=== PATIENT | male | born 1935 | race Caucasian/White ===

== ENCOUNTER → 2018-09-17 09:35 | Outpatient (CLI) | payer MEDICARE, OTHER ==
[~2018-09-17 09:35] MED LIST: BAYER CHEWABLE81 MG PO; LOPRESSOR25 MG PO; METFORMIN HCL500 M1 PO; PLAVIX75 MG PO
--- NOTE | 2018-09-20 17:10 | ST ---
PATIENT:TRES MOY MEDICAL RECORD: [id number] SEX: M LOCATION:[facility] ORDER #: ADMISSION DATE: 09/17/18 AGE OF PATIENT: 83 REFERRING PHYSICIAN: INTERPRETING PHYSICIAN: RANDY NAGY MD DATE OF SERVICE: 09/17/2018 Nuclear Stress Test INDICATION: Angina, cardiomyopathy, and hypertension. The patient was exercised on standard Lexiscan protocol with 32 mCi of sestamibi injected at peak stress, 11 mCi were used previously for rest images. FINDINGS: Gated SPECT reveals a markedly depressed ejection fraction at 27% with decreased thickening and brightening throughout the inferior segments. SPECT IMAGING: Cardiolite was used as myocardial fusion agent. There is a fixed perfusion defect inferiorly compatible with previous inferior myocardial infarction; however, there is reversible changes anteriorly and apically, this includes the basal, mid apical, anterior segments as well as the apex itself. 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 Reversible changes anteriorly suggestive of multivessel coronary artery disease. We will proceed with coronary angiography as followup study. TRANSINT:[id number] Voice Confirmation ID: [id number] DOCUMENT ID: [id number] RANDY NAGY MD at 1710 CC: [id number] DICTATION DATE: 09/18/18 1159 SECURITY TRAINER: 09/19/18 0223 DEP CLI 09/17/18 [place] [id number] [place] [address]
[2018-10-02 09:03] VITALS: BMI 26.3
== END | disposition home or self-care (01) ==
LOC: D.HCCARDIO 09:30
DX: I08.8 Other rheumatic multiple valve diseases (principal)

== ENCOUNTER 2018-09-25 08:27 | Outpatient (CLI) | payer MEDICARE, OTHER ==
[~2018-09-25] VITALS: Ht 175.3 cm; Wt 84.1 kg
--- NOTE | ~2018-09-25 | HEMODYNAMI ---
PATIENT:TRES MOY MEDICAL RECORD: [id number] : 33 LOCATION:[facility] ADMISSION DATE: 09/25/18 Generatedon:09/25/201811:12 Patient name: TRES MOY Patient #: [id number] SSN: DO B: 1935 Date of study: 09/25/2018 Page: Of Hemodynamic Procedure Report Patient Data Patient Demographics Procedure consent was obtained First Name: TRES Gender: Male Last Name: FARZANEH : 1935 Middle Initial: FACUNDO Age: 83 year(s) Patient #: [id number] Race: Unknown Additional ID: [id number] Contact details [address]: [address] [place] [address] State: [place] City: [place] Zip code: [address] Past Medical History Allergies Allergen Reaction Date Comments Reported Other allergy 09/25/2018 pcn Admission Admission Data Admission Date: 09/25/2018 Admission Time: 8:27 Admit Source: Other Lab Results Lab Result Date: 09/25/2018 Lab Result Time: 8:50 Biochemistry Name Units Result Min Max BUN mg/dl 29 --(----)-* 7 18 Creatinine mg/dl 1.2 --(---*)-- 0.6 1.3 CBC Name Units Result Min Max Hematocrit % 45.3 --(-*--)-- 42 54 Hemoglobin g/dl 16 --(--*-)-- 13.5 17.5 Procedure Procedure Types Cath Procedure Diagnostic Procedure LHC LHC w/Coronaries FFR/IVUS Intra-Coronary IVUS Initial PCI Procedure Coronary Stent Coronary Stent Initial x2 Procedure Description Procedure Date Procedure Date: 09/25/2018 Procedure Start Time: 10:46 Procedure End Time: 11:11 Procedure Staff Name Function Milan Gutierrez MD Performing Physician Matthew Dumont RT Monitor Benji Saucedo RT Scrub Александр Kaur RN Nurse Sean Carreon RN Grinder Operator Procedure Data Cath Procedure Fluoroscopy Diagnostic fluoroscopy Total fluoroscopy Time: 6.3 time: 6.3 min min Diagnostic fluoroscopy Total fluoroscopy dose: 990 dose: 990 mGy mGy Contrast Material Contrast Material Type Amount (ml) Isovue 300 126 Entry Location Entry Primary Successful Side Size Upsize Upsize Entry Closure Succes sful Closure Location (Fr) 1 (Fr) 2 (Fr) Remarks Device Remarks Radial Right 6 Fr artery Short Estimated blood loss: 10 ml Diagnostic catheters Device Type Used For End Catheter Placement DIAGNOSTIC [place] 110cm 5 Procedure Fr catheter ([id number]) Procedure Medications Medication Administration Route Dosage 0.9% NaCl I.V. 100 ml/hr Oxygen etCO2 Nasal cannula 2 l/min Heparin Flush Bag added to field 2 bags (1000units/500ml NS) Lidocaine 2% added to field 20 Radial Cocktail added to field 1 syringe (Verapomil 2mg/Nitro 400mcg/Heparin 1500units) Versed I.V. 1 mg Fentanyl I.V. 50 mcg Radial Cocktail I.A. 1 syringe (Verapomil 2mg/Nitro 400mcg/Heparin 1500units) Heparin Bolus I.V. 4000 units Integrilin (Bolus I.V. 7.3 ml 2mg/ml) Integrilin (Bolus wasted 2.7 ml 2mg/ml) Hemodynamics Rest HGB: 16 (g/dl) Heart Rate: 88 (bpm) Pressure Samples Time Site Value (mmHg) Purpose Heart Use Rate(bpm) 10:47 LV 76/36,65 Snapshot 77 Snapshots Pre Cath Intra NCS Post Cath Vital Signs Time Heart Resp SPO2 etCO2 NIBP (mmHg) Rhythm Pain Sedation Rate (ipm) (%) (mmHg) Status Level (bpm) 10:22:59 82 14 94 0 148/88(117) NSR 0 (11) 10(A) , No pain 10:27:01 73 12 90 0 141/84(129) NSR 0 (11) 10(A) , No pain 10:31:09 80 12 92 36 136/88(108) NSR 0 (11) 10(A) , No pain 10:35:16 77 14 92 39.1 132/83(113) NSR 0 (11) 10(A) , No pain 10:39:22 75 15 92 37.6 131/84(101) NSR 0 (11) 10(A) , No pain 10:43:30 69 11 90 36 132/78(114) NSR 0 (11) 9(A) , No pain 10:47:44 77 11 91 34.6 101/53(79) NSR 0 (11) 9(A) , No pain 10:51:46 79 11 92 36.1 116/60(78) NSR 0 (11) 9(A) , No pain 10:55:49 75 14 93 37.6 125/73(89) NSR 0 (11) 9(A) , No pain 10:59:47 75 14 92 37.6 117/67(100) NSR 0 (11) 9(A) , No pain 11:03:51 67 16 92 32.3 119/73(97) NSR 0 (11) 10(A) , No pain 11:07:52 72 12 93 34.6 118/82(91) NSR 0 (11) 10(A) , No pain Medications Time Medication Route Dose Verified Delivered Reason Not es Effectiveness by by 10:28:19 0.9% NaCl I.V. 100 Александр Александр Per physician ml/hr Natasha Kaur RN RN 10:28:28 Oxygen etCO2 2 l/min Александр Александр for low 02 sats Nasal Lorigan Natasha cannula RN RN 10:28:39 Heparin Flush added 2 bags Александр Александр used for Bag to Natasha Kaur procedure (1000units/500ml [facility] RN RN NS) 10:28:49 Lidocaine 2% added 20ml Александр Александр for local to vial Lorigan Lorigan anesthetic RN RN 10:28:58 Radial Cocktail added 1 Александр Александр used for (Verapomil to syringe Lorigan Lorigan procedure 2mg/Nitro field RN RN 400mcg/Heparin 1500units) 10:39:30 Versed I.V. 1 mg Александр Александр for sedation Natasha Kaur RN RN 10:39:38 Fentanyl I.V. 50 mcg Александр Александр for sedation Natasha Kaur RN RN 10:46:39 Radial Cocktail I.A. 1 Александр Milan for (Verapomil syringe Natasha Gutierrez MD vasodilation 2mg/Nitro RN 400mcg/Heparin 1500units) 10:53:48 Heparin Bolus I.V. 4000 Александр Александр for units Lorigan Lorfinesse anticoagulation RN RN 10:54:58 Integrilin I.V. 7.3 ml Александр Александр for (Bolus 2mg/ml) Natasha Kaur antiplatelet RN RN therapy 10:55:10 Integrilin wasted 2.7 ml Александр Александр to sharp's (Bolus 2mg/ml) Natasha Kaur RN health commissioner Log Time Note 10:13:57 Informed consent obtained and on chart 10:14:00 Admit Source: Other 10:14:14 Diagnostic Cath status Elective 10:14:16 Sean Carreon RN sent for patient. Start room use. 10:14:31 Time tracking: Regular hours (M-F 7:00 - 5:00) 10:14:34 Plan of Care:Hemodynamics will remain stable., Cardiac rhythm will remain stable., Comfort level will be maintained., Respiratory function will remain adequate., Patient/ family verbilizes understanding of procedure., Procedure tolerated without complication., Recovers from procedure without complications.. 10:14:50 H&P Date Dictated: 09/10/2018 Within 30 days and on chart., H&P Addendum completed by physician on day of procedure. (MUST COMPLETE FOR ALL OUTPATIENTS). 10:14:57 Patient allergic to Other allergypcn 10:16:05 Lab Result : BUN 29 mg/dl 10:16:05 Lab Result : Creatinine 1.2 mg/dl 10:16:05 Lab Result : Hemoglobin 16 g/dl 10:16:05 Lab Result : Hematocrit 45.3 % 10:16:07 Lab results completed and on chart. 10:16:37 Patient received from Pre/Post Procedure Room to [facility] 2 Alert and oriented. Tansferred to table in Supine position. 10:16:38 Warm blankets applied, and mady hugger turned on for patient comfort. 10:16:39 Correct patient and procedure confirmed by team. 10:16:40 ECG and BP/O2 sat monitors applied to patient. 10:16:49 Pre-procedure instructions explained to patient. 10:16:49 Pre-op teaching completed and patient verbalized understanding. 10:16:50 Family in waiting room. 10:16:51 Patient NPO since Midnight. 10:16:59 Is the patient allergic to Iodine/contrast media? No. 10:17:00 Is patient on blood thinner?No 10:17:01 Patient diabetic? Yes. 10:17:13 If diabetic: On Metformin? Yes 10:17:41 Previous problem with sedation/anesthesia? No ? 10:17:42 Snore? No 10:17:43 Sleep apnea? Yes 10:17:44 Deviated septum? No 10:17:45 Opens mouth fully? Yes 10:17:45 Sticks out tongue? Yes 10:17:47 Airway obstruction? No ? 10:17:56 Dentures? No ? 10:21:00 Modified Facundo's test Ulnar < 7 seconds 10:21:01 Patient pain scale 0/10 \. 10:21:05 IV patent on arrival in left forearm with 0.9% NaCl at [facility]. 10:21:07 Right Radial & Right Groin area was prepped with chlora-prep and draped in sterile fashion 10:21:08 Alarms reviewed by R. N. 10:21:08 Sharps counted by scrub and verified by R.N. 10:21:13 Use device set Radial Dx or PCI 10:21:13 ACIST Syringe (62394) opened to sterile field. 10:21:14 Medline Cath Pack ([id number]) opened to sterile field. 10:21:14 Bag Decanter (2002S) opened to sterile field. 10:21:15 ACIST Hand Control (69237) opened to sterile field. 10:21:15 ACIST Manifold (95817) opened to sterile field. 10:21:16 Tegaderm 4 x 4 (1626W) opened to sterile field. 10:21:16 MBrace Wrist Support ([id number]) opened to sterile field. 10:21:18 SHEATH 6FR Slender (801060) opened to sterile field. 10:21:19 DIAGNOSTIC WIRE .035 260cm J wire (484921) opened to sterile field. 10:21:51 Vital chart was started 10:22:00 Rhythm: sinus rhythm 10:22:01 Full Disclosure recording started 10:22:37 Baseline sample Acquired. 10:23:02 Baseline sample Acquired. 10:28:19 0.9% NaCl 100 ml/hr I.V. was administered by Александр Kaur RN; Per physician; 10:28:28 Oxygen 2 l/min etCO2 Nasal cannula was administered by Александр Kaur RN; for low 02 sats; 10:28:39 Heparin Flush Bag (1000units/500ml NS) 2 bags added to field was administered by Александр Kaur RN; used for procedure; 10:28:49 Lidocaine 2% 20ml vial added to field was administered by Александр Kaur RN; for local anesthetic; 10::58 Radial Cocktail (Verapomil 2mg/Nitro 400mcg/Heparin 1500units) 1 syringe added to field was administered by Александр Kaur RN; used for procedure; 10:29:57 Baseline sample Acquired. 10:37:05 Zero performed for pressure channel P1 10::42 Physician arrived 10:: --------ALL STOP TIME OUT------ 10::43 Final Timeout: patient, procedure, and site verified with staff and physician. All members of the team are in agreement. 10:38:46 Right Radial & Right Groin site verified by team. 10:38:51 Fire Safety Assessment: A--An alcohol-based skin anteseptic being used preoperatively., C--Open oxygen or nitrous oxide is being used., D--An ESU, laser, or fiber-optic light is being used. 10:38:55 Physical assessment completed. ASA score P 2 - A patient with mild systemic disease as per Milan Gutierrez MD. 10:39:00 Sedation plan: IV Moderate Sedation Medication:Versed, Fentanyl 10:39:30 Versed 1 mg I.V. was administered by Александр Kaur RN; for sedation; 10:39:38 Fentanyl 50 mcg I.V. was administered by Александр Kaur RN; for sedation; 10:46:05 Procedure started. 10:46:06 Local anesthetic to right radial artery with Lidocaine 2% by Milan Gutierrez MD.INITIAL ACCESS ONLY 10:46:24 A 6 Fr Short sheath was inserted into the Right Radial artery 10:46:39 Radial Cocktail (Verapomil 2mg/Nitro 400mcg/Heparin 1500units) 1 syringe I.A. was administered by Milan Gutierrez MD; for vasodilation; 10:46:43 A DIAGNOSTIC John Day 110cm 5 Fr catheter (150242) was advanced over the wire and used for Procedure. 10:47:20 LV gram done using MCFARLAND 10:47:22 LV hemodynamics recorded. 10:47:29 EF : 40 % 10:47:45 LCA angiography performed. 10:48:52 RCA angiography performed. 10:48:55 Catheter removed. 10:48:56 Proceeding to intervention. 10:49:19 GUIDE 6FR XBLAD 3.5 catheter ([id number]) opened to sterile field. 10:49:21 INFLATOR Merit BasixCompak (JM5083) opened to sterile field. 10:49:30 CHOICE PT Extra Support 182cm wire ([id number]) opened to sterile field. 10:50:12 Glasco [place] IVUS Catheter (49608X) opened to sterile field. 10:51:03 6 Fr XBLAD 3.5 guide catheter was inserted over the wire 10:51:26 Guide catheter removed. 10:51:32 Catheter removed. unable to cannulate vessel. 10:51:41 GUIDE 6FR XBLAD 4.0 catheter (24581256) opened to sterile field. 10:52:00 6 Fr XBLAD 4 guide catheter was inserted over the wire 10:52:34 CHOICE wire advanced. 10:52:42 FFR/IVUS 10:53:48 Heparin Bolus 4000 units I.V. was administered by Александр Kaur RN; for anticoagulation; 10:54:38 IVUS catheter advanced over wire. 10:54:40 IVUS pass to LAD lesion performed. 10:54:41 IVUS catheter removed over wire. 10:54:58 Integrilin (Bolus 2mg/ml) 7.3 ml I.V. was administered by Александр Kaur RN; for antiplatelet therapy; 10:55:10 Integrilin (Bolus 2mg/ml) 2.7 ml wasted was administered by Александр Kaur RN; to sharp's; 10:55:22 Place stent Inflation Number: 1 A INTEGRITY RX 3.5 x 18 stent ([id number]) was prepped and advanced across the Prox LAD. The stent was deployed at 13 NIRAV for 0:10 (min:sec). 10:55:47 Stent catheter was removed intact over wire. 10:55:56 Wire redirected to CIRCUMFLEX. 10:57:56 Wire removed. 10:57:57 Guide catheter removed. 10:58:59 GUIDE 6FR AR 2.0 catheter ([id number]) opened to sterile field. 10:59:14 6 Fr AR 2 guide catheter was inserted over the wire 11:00:19 RCA 11:00:31 CHOICE wire advanced. 11:02:14 Place stent Inflation Number: 1 A INTEGRITY RX 2.5 x 14 stent ([id number]) was prepped and advanced across the Dist RCA. The stent was deployed at 21 NIRAV for 0:10 (min:sec). 11:03:03 Wire removed. 11:03:04 Stent catheter was removed intact over wire. 11:03:05 Guide catheter removed. 11:03:37 ZEPHYR REGULAR TR BAND NO COST(216956) opened to sterile field. 11:04:12 Procedure type changed to Cath procedure, Diagnostic procedure, LHC, LHC w/Coronaries, FFR/IVUS, Intra-Coronary IVUS Initial, PCI procedure, Coronary Stent, Coronary Stent Initial x2 11:06:40 SHEATH REMOVED INTACT AND ZEPHYR BAND APPLIED AT 8 CC 11:06:43 Procedure ended.(Physican Out) 11:09:21 Fluoroscopy time 06.30 minutes. 11:09:26 Flurop Dose total: 990 11:09:26 Fluoroscopy dose: 990 mGy 11:09:35 Contrast amount:Isovue 300 126ml. 11:09:36 Sharps counted by scrub and verified by R.N. 11:09:40 Insertion/operative site no bleeding no hematoma. 11:09:46 Post right radial artery:stable 11:09:54 Post-procedure physical assessment completed. ASA score P 2 - A patient with mild systemic disease as per Milan Gutierrez MD. 11:10:20 Post procedure rhythm: sinus rhythm 11:10:24 Estimated blood loss: 10 ml 11:10:26 Patient needs reinforcement of post procedure teaching. 11:10:27 Procedure and supply charges have been captured, reviewed, submitted and are correct. 11:10:56 Vital chart was stopped 11:10:58 See physician's report for complete and final results. 11:11:23 Report given to Pre/Post Procedure Room. 11:11:28 Patient transfered to Pre/Post Procedure Room with Stretcher. 11:11:30 Procedure ended. 11:11:30 Full Disclosure recording stopped 11:11:35 End room use (Document Last) Intervention Summary Intervention Notes Time ActionType Lesion and Equipment Action# Pressure Duration Attributes Used 10:55:22 Place stent Prox LAD INTEGRITY RX 1 13 00:10 3.5 x 18 stent ([id number]) 11:02:14 Place stent Dist RCA INTEGRITY RX 1 21 00:10 2.5 x 14 stent ([id number]) Device Usage Item Name Manufacture Quantity Catalog Number Hospital Part Current Mini mal Lot# / Charge Number Stock Stock Serial# Code ACIST Acist 1 03167 824504 775381 419296 20 Syringe Medical (44146) Systems Inc Medline Cath Medline 1 [id number] 125073 32818 503173 5 Pack ([id number]) Bag Decanter Microtek 1 2001S 086298 40499 092734 5 (2001S) Medical Inc. ACIST Hand Acist 1 15620 153254 355234 557160 5 Control Medical (84486) Systems Inc ACIST Acist 1 46567 599627 884645 532767 5 Manifold Medical (98409) Systems Inc Tegaderm 4 x 3M 1 1626W 646498 991200 109176 5 4 (1626W) MBrace Wrist Advanced 1 140-0250-00 380306 56072 446170 5 Support Vascular (769330543) Dynamics SHEATH 6FR Terumo 1 [id number] 680159 058773 006192 5 Slender (80-1060) DIAGNOSTIC St Daniel 1 894238 097401 019129 986882 30 WIRE .035 260cm J wire (832689) DIAGNOSTIC Terumo 1 08-8655 486030 006056 539996 5 John Day 110cm 5 Fr catheter (534281) GUIDE 6FR Cardinal 1 [id number] 782300 707166 683973 10 XBLAD 3.5 Health catheter (58167662) INFLATOR Merit 1 ZA5054 105042 140678 705670 15 Merit Medical BasixCompak (JS2089) CHOICE PT [place] 1 [id number] 852159 984320 676283 5 Extra Scientific Support 182cm wire (6860199Q8) Glasco Glasco 1 70506W 468487 469179 081299 8 [place] IVUS Catheter (71220Q) GUIDE 6FR Cardinal 1 67666915 726841 457447 634728 3 XBLAD 4.0 Health catheter (64227446) INTEGRITY RX Medtronic 1 [id number] 358758 182313 581337 5 [id number] 3.5 x 18 stent ([id number]) GUIDE 6FR AR Medtronic 1 [id number] 635387 13518 817708 1 2.0 catheter (OF6ZX05) INTEGRITY RX Medtronic 1 [id number] 022578 297875 721569 5 [id number] 2.5 x 14 stent ([id number]) ZEPHYR Cardinal 1 995985 716744 963562 5 REGULAR TR Health BAND NO COST(718786) Signature Audit [place] Stage Time Signature Unsigned Intra-Procedure 09/25/2018 Matthew Dumont 11:12:13 AM RT(R) (CV) Signatures Monitor : Matthew Dumont RT Signature : Date : Time : [address] [address]
[2018-09-25] MEDS ORDERED: LOPRESSOR25 MG PO (08:49)
[2018-09-25] MEDS ORDERED: METFORMIN HCL500 M1 PO (08:49)
[2018-09-25] MEDS ORDERED: BAYER CHEWABLE81 MG PO (08:50)
[2018-09-25 08:56] VITALS: BP 161/92; Ht 175.3 cm; Wt 84.1 kg
[2018-09-25 09:03] LABS: BASOPHILS 0.9 % (0-2); EOSINOPHILS 2.5 % (0-7); HEMATOCRIT 45.3 % (42.0-54.0); IMMATURE GRANULOCYTES 0.2 % (0-5); LYMPHOCYTES 23.2 % (15-50); MCH 31.3 pg (26.0-34.0); MCHC 35.3 g/dL (31.0-37.0); MCV 88.5 fL (80.0-100.0); MEAN PLATELET VOLUME 10.9 fL (7.4-10.4); NEUTROPHILS 67.2 % (40-80); PLATELET COUNT 133 10x3/uL (130-400); RBC 5.12 10x6/uL (4.20-6.10); RDW 12.6 % (11.5-14.5); WBC 9.4 10x3/uL (4.8-10.8)
[2018-09-25 09:12] LABS: ANION GAP 17.8 mmol/L (8-16); CALCIUM 8.7 mg/dL (8.5-10.1); CARBON DIOXIDE 23.1 mmol/L (21.0-32.0); CREATININE - SERUM 1.2 mg/dL (0.6-1.3); POTASSIUM - SERUM 3.9 mmol/L (3.5-5.1)
[2018-09-25] MEDS ORDERED: PLAVIX75 MG PO (11:23)
--- NOTE | 2018-09-25 11:35 | NUR ---
PATIENT AWAKE, GIVEN SANDWICH AND COKE PER REQUEST. NO N/V. RIGHT Z BAND IN PLACE, NO S/S OF BLEEDING OR HEMATOMA. FAMILY AT BEDSIDE.
--- NOTE | 2018-09-25 12:05 | NUR ---
PATIENT RESTING, VSS ON 2L NC. RIGHT Z BAND IN PLACE, NO S/S OF BLEEDING OR HEMATOMA. NO C/O PAIN, NUMBNESS, OR TINGLING.
--- NOTE | 2018-09-25 12:35 | NUR ---
PATIENT RESTING, FAMILY AT BEDSIDE. VSS ON 2L NC. RIGHT Z BAND IN PLACE, NO S/S OF BLEEDING OR HEMATOMA. NO C/O PAIN, NUMBNESS, OR TINGLING.
--- NOTE | 2018-09-25 13:00 | NUR ---
PATIENT AWAKE, VSS ON 1L NC. RIGHT Z BAND IN PLACE, NO S/S OF BLEEDING OR HEMATOMA.
--- NOTE | 2018-09-25 13:35 | NUR ---
PATIENT AWAKE, NO C/O PAIN, NUMBNESS, OR TINGLING. VSS ON ROOM AIR. RIGHT Z BAND IN PLACE, NO S/S OF BLEEDING OR HEMATOMA.
--- NOTE | 2018-09-25 14:05 | NUR ---
PATIENT AWAKE, VSS ON ROOM AIR. RIGHT Z BAND IN PLACE, BEGINNING AIR REMOVAL PROTOCOL, NO S/S OF BLEEDING OR HEMATOMA.
--- NOTE | 2018-09-25 14:35 | NUR ---
REMAINING AIR REMOVED FROM Z BAND, NO S/S OF BLEEDING OR HEMATOMA. VSS ON ROOM AIR.
--- NOTE | 2018-09-25 15:05 | NUR ---
IV REMOVED. DRESSING APPLIED TO RIGHT RADIAL SITE, CDI WITH NO S/S OF BLEEDING OR HEMATOMA. VSS ON ROOM AIR. EDUCATION REGARDING DISCHARGE INSTRUCTIONS AND MEDICATIONS GIVEN TO PATIENT AND FAMILY MEMBERS, ALL QUESTIONS ANSWERED.
--- NOTE | 2018-09-25 15:15 | NUR ---
PATIENT TRANSPORTED VIA WHEELCHAIR TO CAR WITH FAMILY DRIVING, ALL BELONGINGS SENT WITH PATIENT.
--- NOTE | 2018-09-26 11:20 | OP ---
PATIENT NAME: TRES MOY MEDICAL RECORD: [id number] :33 LOCATION:[facility] ADMISSION DATE: SURGEON: RANDY NAGY MD DATE OF OPERATION: 09/25/2018 PROCEDURES: 1. PTCA and stent, RCA. 1. PTCA and stent, LAD. 2. Left heart catheterization. 3. Selective coronary angiography. 4. Left ventriculogram. 5. Intravascular ultrasound. INDICATION: Angina and coronary artery disease. PROCEDURE IN DETAIL: After informed consent was obtained with detailed description of risks and benefits as well as alternative therapies, the patient elected to proceed with angiogram and angioplasty. The right radial area was prepped and draped in normal sterile fashion. Right radial artery was cannulated via modified Seldinger technique with placement of 6-Yakut sheath. All catheters were exchanged through this sheath. FINDINGS: The left ventriculogram performed in standard 30-degree MCFARLAND view reveals anterior hypokinesis. Ejection fraction in the 40% range. SELECTIVE CORONARY ANGIOGRAPHY: 1. Left main is with no significant angiographic disease. 2. Left anterior descending has greater than 70% stenosis, confirmed by intravascular ultrasound. 3. Left circumflex has greater than 70% to 80% stenosis in the first obtuse marginal. 4. Right coronary has 70% to 80% stenosis distally. PTCA AND STENT OF THE RCA: The stent used was a 2.5 x 14-mm Integrity. Result was 0% residual stenosis. PTCA AND STENT OF THE LAD: The stent used was a 3.5 x 18-mm Integrity. Result was 0% residual stenosis. OVERALL IMPRESSION: Successful PTCA and stent of the RCA and LAD, both going from 70% to 80% initial stenosis. PLAN: PTCA and stent of the circumflex in the near future. TRANSINT:[id number] Voice Confirmation ID: [id number] DOCUMENT ID: [id number] RANDY NAGY MD at 1120 CC: [id number] DICTATION DATE: 09/25/18 1109 CARBURETOR REPAIRER: 09/25/18 1206 DEP CLI 09/25/18 [place] [id number]
== END 2018-09-25 15:15 ==
LOC: D.CATH 08:27
PROVIDERS: Internal Medicine Interventional Cardiology
DX: I25.119 Atherosclerotic heart disease of native coronary artery with unspecified angina pectoris (principal); Z01.812 Encounter for preprocedural laboratory examination

== ENCOUNTER 2018-10-02 08:30 | Outpatient (CLI) | payer MEDICARE, OTHER ==
[~2018-10-02] VITALS: Ht 175.3 cm; Wt 80.9 kg
--- NOTE | ~2018-10-02 | HEMODYNAMI ---
PATIENT:TRES MOY MEDICAL RECORD: [id number] : 33 LOCATION:[facility] ADMISSION DATE: 10/02/18 Generatedon:10/02/201810:49 Patient name: TRES MOY Patient #: [id number] SSN: DO B: 1935 Date of study: 10/02/2018 Page: Of Hemodynamic Procedure Report Patient Data Patient Demographics Procedure consent was obtained First Name: TRES Gender: Male Last Name: FARZANEH : 1935 Middle Initial: FACUNDO Age: 83 year(s) Patient #: [id number] Race: Unknown Additional ID: [id number] Contact details [address]: [address] [place] [address] State: [place] City: [place] Zip code: [address] Past Medical History Allergies Allergen Reaction Date Comments Reported Other allergy 09/25/2018 pcn Admission Admission Data Admission Date: 10/02/2018 Admission Time: 8:30 Procedure Procedure Types Cath Procedure Diagnostic Procedure Sedation Charges Moderate Sedation up to 15 minutes PCI Procedure Coronary Stent Coronary Stent Initial Procedure Description Procedure Date Procedure Date: 10/02/2018 Procedure Start Time: 10:37 Procedure End Time: 10:48 Procedure Staff Name Function Milan Gutierrez MD Performing Physician Leny Mahajan RT Monitor Liana Horne RN Nurse Conchis Herndon RT Scrub Ofelia Izaguirre RT Scrub Sean Carreon RN Online Trader Procedure Data Cath Procedure Fluoroscopy Diagnostic fluoroscopy Total fluoroscopy Time: 4.5 time: 4.5 min min Diagnostic fluoroscopy Total fluoroscopy dose: 474 dose: 474 mGy mGy Contrast Material Contrast Material Type Amount (ml) Isovue 300 66 Entry Location Entry Primary Successful Side Size Upsize Upsize Entry Closure Hines ccessful Closure Location (Fr) 1 (Fr) 2 (Fr) Remarks Device Remarks Radial Right 6 Fr Mechanical artery Short Compression Estimated blood loss: 10 ml Procedure Complications No complications Procedure Medications Medication Administration Route Dosage Oxygen etCO2 Nasal cannula 2 l/min Lidocaine 2% added to field 20 Heparin Flush Bag added to field 2 bags (1000units/500ml NS) 0.9% NaCl I.V. 100 ml/hr Radial Cocktail I.A. 1 syringe (Verapomil 2mg/Nitro 400mcg/Heparin 1500units) Versed I.V. 1 mg Fentanyl I.V. 50 mcg Versed I.V. 1 mg Fentanyl I.V. 50 mcg Heparin Bolus I.V. 4000 units Hemodynamics Rest HGB: 16 (g/dl) Heart Rate: 75 (bpm) Snapshots Pre Cath Intra NCS Post Cath Vital Signs Time Heart Resp SPO2 etCO2 NIBP (mmHg) Rhythm Pain Sedation Rate (ipm) (%) (mmHg) Status Level (bpm) 9:56:07 66 21 96 12.8 140/85(108) NSR 0 (11) 10(A) , No pain 10:00:25 67 25 95 0 138/80(115) NSR 0 (11) 10(A) , No pain 10:04:39 68 15 94 32.4 141/84(118) NSR 0 (11) 10(A) , No pain 10:08:59 64 11 95 30.9 137/74(108) NSR 0 (11) 10(A) , No pain 10:13:13 64 13 93 37.7 136/81(101) NSR 0 (11) 10(A) , No pain 10:17:29 62 14 93 36.2 137/76(120) NSR 0 (11) 10(A) , No pain 10:21:48 64 11 93 34.7 137/73(91) NSR 0 (11) 10(A) , No pain 10:26:06 60 14 93 34 137/67(114) NSR 0 (11) 10(A) , No pain 10:30:26 63 11 94 25.6 134/67(97) NSR 0 (11) 10(A) , No pain 10:34:44 60 13 94 32.4 124/68(99) NSR 0 (11) 9(A) , No pain 10:39:00 61 14 92 21.1 104/61(73) NSR 0 (11) 9(A) , No pain 10:43:07 67 13 94 33.9 100/62(89) NSR 0 (11) 9(A) , No pain 10:47:11 70 14 93 25.6 114/71(84) NSR 0 (11) 10(A) , No pain Medications Time Medication Route Dose Verified Delivered Reason Not es Effectiveness by by 9:55:40 Oxygen etCO2 2 l/min Milan Gaines used for Nasal Matt Horne RN procedure cannula 9:55:47 Lidocaine 2% added 20ml Milanpako Yates for local to vial Matt Gutierrez MD anesthetic field 9:55:52 Heparin Flush added 2 bags Milan Yates used for Bag to Matt Gutierrez MD procedure (1000units/500ml field NS) 9:56:02 0.9% NaCl I.V. 100 Milan Gonzalezie Per physician ml/hr Matt Horne RN 10:29:13 Versed I.V. 1 mg Milan Gonzalezie for sedation Matt Horne RN 10:29:20 Fentanyl I.V. 50 mcg Milan Gaines for sedation Matt Horne RN 10:37:13 Versed I.V. 1 mg Milan Gonzalezie for sedation Matt Horne RN 10:37:17 Fentanyl I.V. 50 mcg Milan Gaines for sedation Matt Horne RN 10:37:52 Radial Cocktail I.A. 1 Milan Yates for (Verapomil syringe Matt Gutierrez MD vasodilation 2mg/Nitro 400mcg/Heparin 1500units) 10:39:00 Heparin Bolus I.V. 4000 Milan Gaines for dacia ified units Matt Horne RN anticoagulation with dr gutierrez Procedure Log Time Note 9:42:52 Sean Carreon RN sent for patient. Start room use. 9:42:53 Time tracking: Regular hours (M-F 7:00 - 5:00) 9:42:57 Plan of Care:Hemodynamics will remain stable., Cardiac rhythm will remain stable., Comfort level will be maintained., Respiratory function will remain adequate., Patient/ family verbilizes understanding of procedure., Procedure tolerated without complication., Recovers from procedure without complications.. 9:48:58 Patient received from Pre/Post Procedure Room to CCL 1 Alert and oriented. Tansferred to table in Supine position. 9:48:59 Warm blankets applied, and mady hugger turned on for patient comfort. 9:48:59 Correct patient and procedure confirmed by team. 9:49:00 Signed procedure consent form obtained from patient. 9:49:01 ECG and BP/O2 sat monitors applied to patient. 9:54:52 Full Disclosure recording started 9:54:56 Vital chart was started 9:55:02 Rhythm: sinus rhythm 9:55:21 H&P Date Dictated: 09/10/2018 Within 30 days and on chart., H&P Addendum completed by physician on day of procedure. (MUST COMPLETE FOR ALL OUTPATIENTS). 9:55:23 Pre-procedure instructions explained to patient. 9:55:23 Pre-op teaching completed and patient verbalized understanding. 9:55:26 Family in patients room. 9:55:28 Patient NPO since Midnight. 9:55:40 Oxygen 2 l/min etCO2 Nasal cannula was administered by Liana Horne RN; used for procedure; 9:55:42 Is the patient allergic to Iodine/contrast media? No. 9:55:47 Lidocaine 2% 20ml vial added to field was administered by Milan Gutierrez MD; for local anesthetic; 9:55:52 Heparin Flush Bag (1000units/500ml NS) 2 bags added to field was administered by Milan Gutierrez MD; used for procedure; 9:55:52 Is patient on blood thinner?Yes 9:55:55 ACC The patient was administered the following blood thiners within the last 24 hours: ACCPlavix 9:55:58 Patient diabetic? Yes. 9:56:01 If diabetic: On Metformin? Yes 9:56:02 0.9% NaCl 100 ml/hr I.V. was administered by Liana Horne RN; Per physician; 9:56:03 If on Metformin: Last Dose? 10/01/2018 9:56:06 Previous problem with sedation/anesthesia? No ? 9:56:27 Snore? No 9:56:28 Sleep apnea? Yes 9:56:29 Deviated septum? No 9:56:30 Opens mouth fully? Yes 9:56:31 Sticks out tongue? Yes 9:56:33 Airway obstruction? No ? 9:56:35 Dentures? No ? 9:56:38 Pre procedure: right dorsailis pedis pulse 2+ Normal; easily identifiable; not easily obliterated 9:56:40 Modified Facundo's test Ulnar < 7 seconds 9:56:41 Patient pain scale 0/10 ?. 9:56:49 IV patent on arrival in left forearm with 0.9% NaCl at O. 9:56:50 Lab results completed and on chart. 9:56:53 Right Radial & Right Groin area was prepped with chlora-prep and draped in sterile fashion 9:56:54 Alarms reviewed by R. N. 9:56:54 Sharps counted by scrub and verified by R.N. 9:56:59 Use device set Radial Dx or PCI 9:57:01 ACIST Syringe (48757) opened to sterile field. 9:57:01 Medline Cath Pack ([id number]) opened to sterile field. 9:57:01 Bag Decanter (2002S) opened to sterile field. 9:57:02 DIAGNOSTIC WIRE .035 260cm J wire (823644) opened to sterile field. 9:57:02 ACIST Hand Control (89483) opened to sterile field. 9:57:03 ACIST Manifold (66601) opened to sterile field. 9:57:03 Tegaderm 4 x 4 (1626W) opened to sterile field. 9:57:04 MBrace Wrist Support ([id number]) opened to sterile field. 9:57:05 SHEATH 6FR Slender (88-2890) opened to sterile field. 9:59:59 Baseline sample Acquired. 10:13:03 Zero performed for pressure channel P1 10:13:08 Zero performed for pressure channel P1 10:13:12 Zero performed for pressure channel P1 10:27:53 Final Timeout: patient, procedure, and site verified with staff and physician. All members of the team are in agreement. 10:27:56 Right Radial site verified by team. 10:27:59 Fire Safety Assessment: A--An alcohol-based skin anteseptic being used preoperatively., C--Open oxygen or nitrous oxide is being used., D--An ESU, laser, or fiber-optic light is being used. 10:28:02 Physical assessment completed. ASA score P 2 - A patient with mild systemic disease as per Milan Gutierrez MD. 10:28:05 Sedation plan: IV Moderate Sedation Medication:Versed, Fentanyl 10:29:13 Versed 1 mg I.V. was administered by Liana Horne RN; for sedation; 10:29:20 Fentanyl 50 mcg I.V. was administered by Liana Horne RN; for sedation; 10:37:11 Procedure started. 10:37:13 Versed 1 mg I.V. was administered by Liana Horne RN; for sedation; 10:37:14 Local anesthetic to right radial artery with Lidocaine 2% by Milan Gutierrez MD.INITIAL ACCESS ONLY 10:37:17 Fentanyl 50 mcg I.V. was administered by Liana Horne RN; for sedation; 10:37:22 A 6 Fr Short sheath was inserted into the Right Radial artery 10:37:44 Use device set MATT PCI 10:37:46 INFLATOR Merit BasixCompak ([id number]) opened to sterile field. 10:37:48 CHOICE PT Extra Support 182cm wire ([id number]) opened to sterile field. 10:37:52 Radial Cocktail (Verapomil 2mg/Nitro 400mcg/Heparin 1500units) 1 syringe I.A. was administered by Milan Gutierrez MD; for vasodilation; 10:37:59 GUIDE 6FR XB 4.0 catheter ([id number]) opened to sterile field. 10:38:13 6 Fr XB 4.0 guide catheter was inserted over the wire 10:39:00 Heparin Bolus 4000 units I.V. was administered by Liana Horne RN; for anticoagulation; verified with dr gutierrez 10:40:34 CHOICE PT ES wire advanced. 10:44:55 Place stent Inflation Number: 1 A INTEGRITY RX 3.0 x 18 stent ([id number]) was prepped and advanced across the Dist CX. The stent was deployed at 15 NIRAV for 0:10 (min:sec). 10:45:10 Stent catheter was removed intact over wire. 10:45:10 Wire removed. 10:45:12 Guide catheter removed. 10:45:22 Sheath removed intact; hemostasis achieved with Mechanical Compression to the Right Radial artery. 10:45:24 Procedure ended.(Physican Out) 10:46:46 Fluoroscopy time 04.50 minutes. 10:46:50 Flurop Dose total: 474 10:46:50 Fluoroscopy dose: 474 mGy 10:46:54 Contrast amount:Isovue 300 66ml. 10:46:55 Sharps counted by scrub and verified by R.N. 10:46:57 TR band inflated with 12cc of air. 10:46:59 Insertion/operative site no bleeding no hematoma. 10:47:06 Post right radial artery:stable, clean and dry 10:47:07 Post Procedure Pulses reassessed and unchanged 10:47:13 Post-procedure physical assessment completed. ASA score P 2 - A patient with mild systemic disease as per Milan Gutierrez MD. 10:47:15 Post procedure rhythm: unchanged. 10:47:22 Estimated blood loss: 10 ml 10:47:23 Post procedure instruction explained to patient.Patient verbalizes understanding. 10:47:24 Patient needs reinforcement of post procedure teaching. 10:47:39 Procedure type changed to Cath procedure, Diagnostic procedure, Sedation Charges, Moderate Sedation up to 15 minutes, PCI procedure, Coronary Stent, Coronary Stent Initial 10:47:43 Procedure Complication : No complications 10:47:46 See physician's report for complete and final results. 10:47:58 TR BAND Standard ([id number]) opened to sterile field. 10:48:18 Procedure and supply charges have been captured, reviewed, submitted and are correct. 10:48:33 Vital chart was stopped 10:48:36 Report given to Pre/Post Procedure Room. 10:48:39 Patient transfered to Pre/Post Procedure Room with Stretcher. 10:48:48 Procedure ended. 10:48:48 Full Disclosure recording stopped 10:48:51 End room use (Document Last) Intervention Summary Intervention Notes Time ActionType Lesion and Equipment Action# Pressure Duration Attributes Used 10:44:55 Place stent Dist CX INTEGRITY RX 1 15 00:10 3.0 x 18 stent ([id number]) Device Usage Item Name Manufacture Quantity Catalog Number Hospital Part Current Mini nuvance health Lot# / Charge Number Stock Stock Serial# Code ACIST Acist 1 68439 321853 392645 214686 20 Syringe Medical (47040) Systems Inc Medline Cath Medline 1 [id number] 347960 27361 358193 5 Pack ([id number]) Bag Decanter Microtek 1 2001S 716883 35833 782663 5 () Medical Inc. DIAGNOSTIC [facility] [place] 1 508454 829551 010611 738078 30 WIRE .035 260cm J wire (059436) ACIST Hand Acist 1 92982 294334 872808 549380 5 Control Medical (02318) Systems Inc ACIST Acist 1 19913 178740 527984 664943 5 Manifold Medical (61209) Systems Inc Tegaderm 4 x 3M 1 1626W 887025 204225 360526 5 4 (1626W) MBrace Wrist Advanced 1 140-0250-00 816019 06158 268115 5 Support Vascular (690331949) Dynamics SHEATH 6FR Terumo 1 [id number] 383535 383325 272805 5 Slender (80-1060) INFLATOR Merit 1 [id number] 997158 217268 183246 15 [facility] Medical BasixCompak (TB6995) CHOICE PT [place] 1 [id number] 303731 498433 015571 5 Extra Scientific Support 182cm wire ([id number]) GUIDE 6FR XB Cardinal 1 [id number] 695386 710403 661895 2 4.0 catheter Health (37091824) INTEGRITY RX Medtronic 1 [id number] 103226 328461 574676 5 [id number] 3.0 x 18 stent ([id number]) TR BAND Terumo 1 [id number] 993337 018865 508048 40 Standard ([id number]) Signature Audit [place] Stage Time Signature Unsigned Intra-Procedure 10/02/2018 Leny 10:49:03 AM Counts RT(R) Signatures Monitor : Leny Signature : Counts RT Date : Time : [id number] [place] [address]
[2018-10-02 09:03] VITALS: BP 147/77; Ht 175.3 cm; Wt 80.9 kg
[2018-10-02 09:14] LABS: BASOPHILS 1.1 % (0-2); EOSINOPHILS 2.6 % (0-7); HEMATOCRIT 42.6 % (42.0-54.0); IMMATURE GRANULOCYTES 0.3 % (0-5); LYMPHOCYTES 22.5 % (15-50); MCH 31.1 pg (26.0-34.0); MCHC 35.2 g/dL (31.0-37.0); MCV 88.2 fL (80.0-100.0); MONOCYTES 6.4 % (2-11); NEUTROPHILS 67.1 % (40-80); PLATELET COUNT 133 10x3/uL (130-400); RBC 4.83 10x6/uL (4.20-6.10); RDW 12.5 % (11.5-14.5); WBC 9.5 10x3/uL (4.8-10.8)
[2018-10-02 09:27] LABS: ANION GAP 15.9 mmol/L (8-16); CALCIUM 8.4 mg/dL (8.5-10.1); CARBON DIOXIDE 23.3 mmol/L (21.0-32.0); CREATININE - SERUM 1.2 mg/dL (0.6-1.3); POTASSIUM - SERUM 4.2 mmol/L (3.5-5.1)
--- NOTE | 2018-10-02 11:11 | NUR ---
RIGHT WRIST TR BAND IN PLACE. NO BLEEDING/HEMATOMA NOTED. CAP REFILL < 3 SECS TO RIGHT HAND. FAMILY AT BEDSIDE. DR. NAGY ROUNDED AND SPOKE WITH PT AND PT'S FAMILY.
--- NOTE | 2018-10-02 11:45 | NUR ---
PT RESTING COMFORTABLY. VSS. RIGHT RADIAL TR BAND IN PLACE. NO BLEEDING/HEMATOMA NOTED.
--- NOTE | 2018-10-02 12:13 | NUR ---
PT'S HEAD OF BED INC TO 30 DEGREES. PT MORE ALERT. VSS. RIGHT RADIAL TR BAND IN PLACE. NO BLEEDING/HEMATOMA NOTED. PT SET UP WITH SANDWICH TRAY AND WATER.
--- NOTE | 2018-10-02 13:09 | NUR ---
PT RESTING COMFORTABLY. RIGHT RADIAL TR BAND IN PLACE. NO BLEEDING/HEMATOMA NOTED. VSS. FAMILY AT BEDSIDE. TOLERATED FOOD AND DRINK. DENIES NAUSEA.
--- NOTE | 2018-10-02 13:41 | NUR ---
2cc OF AIR REMOVED FROM TR BAND. NO BLEEDING/HEMATOMA NOTED. VSS. FAMILY AT BEDSIDE.
--- NOTE | 2018-10-02 14:02 | NUR ---
3cc OF AIR REMOVED FROM TR BAND. NO BLEEDING/HEMATOMA NOTED. VSS. PT RESTING COMFORTABLY. NO COMPLAINTS OF PAIN.
--- NOTE | 2018-10-02 14:25 | NUR ---
3cc OF AIR REMOVED FROM TR BAND. NO BLEEDING/HEMATOMA NOTED. LEFT FA PIV D/C'D WITH CATH TIP INTACT. PT TOLERATED WELL. PT INSTRUCTED TO GET UP AND GET DRESSED. DISCUSSED DISCHARGE INSTRUCTIONS WITH PT AND PT'S FAMILY. THEY VOICED UNDERSTANDING.
--- NOTE | 2018-10-02 14:35 | NUR ---
RIGHT RADIAL TR BAND REMOVED. DRESSING APPLIED. NO BLEEDING/HEMATOMA NOTED. PT AMBULATED TO RESTROOM AND VOIDED WITHOUT DIFFICULTY.
--- NOTE | 2018-10-02 14:45 | NUR ---
PT AMBULATED OUT TO VEHICLE. REFUSED WHEELCHAIR. NO S/S OF DISTRESS NOTED. RIGHT RADIAL DRESSING C/D/I. NO BLEEDING/HEMATOMA NOTED. ALL BELONGINGS AND PAPERWORK IN HAND.
--- NOTE | 2018-10-09 11:18 | OP ---
PATIENT NAME: TRES MOY MEDICAL RECORD: [id number] :33 LOCATION:[facility] ADMISSION DATE: SURGEON: RANDY NAGY MD DATE OF OPERATION: 10/02/2018 PROCEDURES: 1. PTCA stent left circumflex. 2. Selective coronary angiography. INDICATION: Angina and coronary artery disease. PROCEDURE IN DETAIL: After informed consent was obtained and after a detailed description of the risks, benefits as well as alternative therapies, the patient elected to proceed with angiogram and angioplasty. The right radial area was prepped and draped in normal sterile fashion. Right radial artery was cannulated via modified Seldinger technique with placement of 6-[place] Island[place] sheath. All catheters exchanged through this sheath. FINDINGS: The left circumflex has 80% stenosis in the mid vessel. This was addressed with a 3.0 x 18 mm Integrity stent. Result was 0% residual stenosis. OVERALL IMPRESSION: Successful percutaneous transluminal coronary angioplasty stent of the left circumflex going from 80% initial stenosis to 0% residual. TRANSINT:[id number] Voice Confirmation ID: [id number] DOCUMENT ID: [id number] RANDY NAGY MD at 1118 CC: [id number] DICTATION DATE: 10/02/18 1047 PROJECT MANAGEMENT IT SPECIALIST: 10/02/18 1111 DEP CLI 10/02/[address] [address]
== END 2018-10-02 14:45 | disposition home or self-care (01) ==
LOC: D.CATH 08:30
PROVIDERS: Internal Medicine Interventional Cardiology
DX: I25.119 Atherosclerotic heart disease of native coronary artery with unspecified angina pectoris (principal); Z01.812 Encounter for preprocedural laboratory examination